=== PATIENT | female | born 1945 | race Caucasian/White ===

== ENCOUNTER 2018-05-13 07:47 | Emergency (ER) | payer OTHER ==
[~2018-05-13] VITALS: Ht 165.1 cm; Wt 122.5 kg
[~2018-05-13 07:47] MED LIST: NORCO 5-325 TA1 EACH PO
[2018-05-13 08:08] LABS: ABSOLUTE BASOPHILS 0.1 thou/uL (0.0-0.2); ABSOLUTE EOSINOPHILS 0.1 thou/uL (0.0-0.7); ABSOLUTE LYMPHOCYTES 1.1 thou/uL (0.8-5.3); ABSOLUTE MONOCYTES 0.3 thou/uL (0.0-1.2); ABSOLUTE NEUTROPHILS 2.2 thou/uL (1.6-8.1); EOSINOPHILS 2.7 %; HEMATOCRIT 43.1 % (37.0-47.0); HEMOGLOBIN 14.9 gm/dL (12.0-15.0); LYMPHOCYTES 28.7 %; MCH 29.1 pg (26.0-34.0); MCHC 34.6 g/dL (28.0-37.0); MCV 84.1 fL (80.0-100.0); MONOCYTES 6.9 %; MPV 8.1 fl. (7.2-11.1); NUCLEATED RBCS 0 /100WBC; PLATELET COUNT* 148 thou/uL (150-400); POLYS 59.7 %; RBC 5.13 mil/uL (4.20-5.00); RDW-CV 14.4 % (10.5-14.5); WBC 3.7 thou/uL (4.0-11.0)
[2018-05-13 08:25] LABS: INR 1.2; PROTIME 12.3 Seconds (9.20-11.50)
[2018-05-13 08:26] LABS: ALBUMIN 3.7 g/dL (3.4-5.0); ALKALINE PHOSPHATASE 81 U/L (46-116); ANION GAP 5 mmol/L (7-16); BUN 10 mg/dL (7-18); CALCIUM 8.5 mg/dL (8.5-10.1); CHLORIDE 102 mmol/L (98-107); CO2 30 mmol/L (21-32); CREATININE 0.8 mg/dL (0.6-1.3); GLUCOSE 250 mg/dL (70-99); NT-PRO BRAIN NAT PEPTIDE 261 pg/mL (<300); POTASSIUM 3.9 mmol/L (3.5-5.1); SGOT 12 U/L (15-37); SGPT 17 U/L (30-65); SODIUM 137 mmol/L (136-145); TOTAL BILIRUBIN 0.6 mg/dL (<0.1-1.0); TOTAL PROTEIN 7.8 g/dL (6.4-8.2); TROPONIN-I LEVEL <0.06 ng/mL (<0.06)
[2018-05-13] MEDS ORDERED: VALACYCLOVIR1000 MG PO (10:22)
[2018-05-13] MEDS ORDERED: PREDNISONE50 MG PO (10:22)
[2018-05-13] MEDS ORDERED: PAMELOR10 MG PO (10:45)
[2018-05-13] MEDS ORDERED: LOVAZA1000 MG PO (10:46)
[2018-05-13] MEDS ORDERED: METFORMIN HCL500 MG PO (10:46)
[2018-05-13] MEDS ORDERED: LISINOPRIL20 MG PO (10:46)
[2018-05-13] MEDS ORDERED: NORCO 10-325 T1 EACH PO (10:46)
[2018-05-13 10:50] VITALS: BP 185/93
--- NOTE | 2018-05-13 17:44 | EKG ---
[place] [address] ELECTROCARDIOGRAM REPORT Name: JOHN MADDOX I Room: [facility]#: [id number] Admission: 05/13/18 Attend Phys: Discharge: 05/13/18 Date of : 49 Report #: [id number] THIS REPORT FOR: //name// [facility] ED Test Date: 2018-05-13 Test Time: 07:52:43 Pat Name: JOHN MADDOX Department: Room: Gender: F [employer]: CHRISTY : 1945 Requested By: Yola Scanlon Order Number: [id number] MD: Jesse Orr Measurements Intervals [place] Rate: 85 P: -43 OR: 60 QRS: 26 QRSD: 100 T: 34 QT: 409 QTc: 487 Interpretive Statements Sinus rhythm Short OR interval Abnormal R-wave progression, late transition Borderline prolonged QT interval Compared to ECG 07/09/2015 12:45:34 Short OR interval now present Myocardial infarct finding no longer present Electronically Signed On 05-13-2018 17:44:08 CDT by Jesse Orr [email or web address] <ELECTRONICALLY SIGNED> By: Jesse Orr MD, FACC 05/13/18 [id number] Jesse Orr MD, [facility] /EPI
== END 2018-05-13 10:52 | disposition home or self-care (01) ==
LOC: M.ERS 07:47
PROVIDERS: Personal Emergency Response Attendant
DX: G51.0 Bell's palsy (principal); I10 Essential (primary) hypertension; E11.9 Type 2 diabetes mellitus without complications; Z90.11 Acquired absence of right breast and nipple

== ENCOUNTER 2018-10-03 15:56 | Emergency (ER) | payer OTHER ==
[~2018-10-03] VITALS: Ht 165.1 cm; Wt 111.1 kg
[~2018-10-03 15:56] MED LIST changes: +LISINOPRIL20 MG PO; +LOVAZA1000 MG PO; +METFORMIN HCL500 MG PO; +NORCO 10-325 T1 EACH PO; +PAMELOR10 MG PO; +PREDNISONE50 MG PO; +VALACYCLOVIR1000 MG PO
[2018-10-03] MEDS ORDERED: NABUMETONE 750750 M1 PO (19:29)
[2018-10-03] MEDS ORDERED: NORCO 5-325 TA1 EAC1 PO (19:29)
[2018-10-03 19:54] VITALS: BP 172/19
== END 2018-10-03 19:59 | disposition home or self-care (01) ==
LOC: M.ERS 15:56
DX: S22.20XA Unspecified fracture of sternum, initial encounter for closed fracture (principal); E11.9 Type 2 diabetes mellitus without complications; I10 Essential (primary) hypertension; M32.9 Systemic lupus erythematosus, unspecified; Z90.710 Acquired absence of both cervix and uterus; Z90.11 Acquired absence of right breast and nipple; V89.2XXA Person injured in unspecified motor-vehicle accident, traffic, initial encounter; Y93.89 Activity, other specified; Y92.488 Other paved roadways as the place of occurrence of the external cause; Y99.8 Other external cause status